=== PATIENT | male | born 1985 | race African-American/Black ===

== ENCOUNTER 2018-12-28 09:48 | Emergency (ER) | payer OTHER ==
[2018-12-28 09:57] VITALS: BP 125/65
[2018-12-28] MEDS ORDERED: IBUPROFEN 800 MG TABLET PO ONE (10:49)
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
== END 2018-12-28 13:03 | disposition home or self-care (01) ==
LOC: ER 09:48
DX: S43.401A Unspecified sprain of right shoulder joint, initial encounter (principal); S16.1XXA Strain of muscle, fascia and tendon at neck level, initial encounter; M25.511 Pain in right shoulder; M54.5 Low back pain; M54.2 Cervicalgia; V87.7XXA Person injured in collision between other specified motor vehicles (traffic), initial encounter; F17.200 Nicotine dependence, unspecified, uncomplicated
CPT/HCPCS: 99284; 73030; 72125; L3650

== ENCOUNTER 2018-12-28 20:43 | Emergency (ER) | payer OTHER ==
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
--- NOTE | 2018-12-29 00:03 | RADIOLOGY REPORT (SQ) ---
5 VIEWS OF LUMBAR SPINE EXAM DATE: 12/28/2018 11:05 PM CDT HISTORY: Lower back pain. COMPARISON: None. FINDINGS: No acute compression fracture is seen. There is normal alignment without subluxation. The disc spaces are preserved. The sacroiliac joints are intact. No evidence of spondylolysis on the oblique views. IMPRESSION: No acute lumbar findings.
[2018-12-29] MEDS ORDERED: HYDROCODONE/ACETAMINOPHEN 5-325 MG (6 TAB/ER DISP) PO PRN (00:11)
[2018-12-29 00:56] VITALS: BP 125/66
== END 2018-12-29 00:30 | disposition home or self-care (01) ==
LOC: ER 20:43
DX: M54.5 Low back pain (principal); M54.9 Dorsalgia, unspecified; M25.512 Pain in left shoulder; M54.2 Cervicalgia; V87.7XXD Person injured in collision between other specified motor vehicles (traffic), subsequent encounter
CPT/HCPCS: 72110; 99283

== ENCOUNTER 2019-04-28 11:59 | Emergency (ER) | payer OTHER ==
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
--- NOTE | 2019-04-28 12:59 | RADIOLOGY REPORT (SQ) ---
EXAM DESCRIPTION: L SPINE WHOLE COMPLETED DATE/TIME: 04/28/2019 12:32 pm REASON FOR STUDY: pain low back COMPARISON: None. NUMBER OF VIEWS: Five views including obliques. TECHNIQUE: AP, lateral, oblique, and sacral radiographic images acquired of the lumbar spine. LIMITATIONS: None. FINDINGS: MINERALIZATION: Normal. SEGMENTATION: There appears to be partial sacralization of L5 on the left. ALIGNMENT: Normal. VERTEBRAE: Maintained height. No fracture or worrisome bone lesion. DISCS: There is marked disc narrowing at L5-S1. POSTERIOR ELEMENTS: Pedicles and facets are intact. No pars defect or posterior arch defects. HARDWARE: None in the spine. PARASPINAL SOFT TISSUES: Normal. PELVIS: Intact as visualized. No fractures or worrisome bone lesions. SI joints intact. OTHER: No other significant finding. 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 No acute finding. TECHNICAL DOCUMENTATION: JOB ID: [id number]- All Rights Reserved Reading location - IP/workstation name: [email or web address]
[2019-04-28] MEDS ORDERED: KETOROLAC TROMETHAMINE 60 MG/2 ML SDV IM ONE (13:01)
[2019-04-28 13:05] LABS: APPEARANCE,URINE CLEAR; BILIRUBIN,URINE NEGATIVE (NEGATIVE); COLOR,URINE YELLOW; GLUCOSE, URINE NEGATIVE (NEGATIVE); KETONES,URINE NEGATIVE (NEGATIVE); PROTEIN,URINE NEGATIVE (NEGATIVE); URINE SPECIFIC GRAVITY 1.019
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
[2019-04-28 13:37] LABS: URINE AMPHETAMINES SCREEN NEGATIVE; URINE BARBITURATES SCREEN NEGATIVE; URINE BENZODIAZEPINES SCREEN NEGATIVE; URINE COCAINE SCREEN NEGATIVE; URINE MARIJUANA (THC) SCREEN UNCONFIRMED POSITIVE; URINE METHADONE SCREEN NEGATIVE; URINE PHENCYCLIDINE SCREEN NEGATIVE
[2019-04-28 13:55] VITALS: BP 123/71
== END 2019-04-28 13:55 | disposition home or self-care (01) ==
LOC: ER 11:59
DX: M54.5 Low back pain (principal); X50.3XXA Overexertion from repetitive movements, initial encounter; F17.200 Nicotine dependence, unspecified, uncomplicated
CPT/HCPCS: 81001; 80307; 72110; J1885; 96374; 99283